=== PATIENT | female | born 1995 | race Caucasian/White ===

== ENCOUNTER → 2023-04-05 | Outpatient (CLI) | payer BC, SELFPAY ==
[2023-04-05 12:06] LABS: Absolute Lymphocyte Count 1.65 X10^3/uL (0.83-4.51); Absolute Neutrophil Count 8.4 X10^3/uL (2.0-7.7); Basophil# 0.09 X10^3/uL; Basophil% 0.8 % (0-1); Eosinophil# 0.22 X10^3/uL; Eosinophils% 1.9 % (0-5); Hematocrit 34.3 % (37-47); Hemoglobin 10.3 g/dL (12.0-15.0); Lymphocyte # 1.65 X10^3/ul (0.83-4.51); Lymphocyte % 14.3 % (19-41); Mean Corpuscular Volume 73.1 fL (81-99); Mean Platelet Vol. 9.3 fl (6.2-12.0); Monocyte# 1.17 X10^3/uL; Monocyte% 10.1 % (0-10); NRBC Flagged by Analyzer 0 % (0-5); Neutrophil # 8.35 X10^3/uL (2.7-7.7); Neutrophil % 72.5 % (47-70); Platelet Count 313 K/mm3 (150-450); RBC Distribution Width CV 16.9 % (11.6-14.6); RBC Distribution Width SD 43.8 fl (35.1-43.9); Red Blood Count 4.69 M/mm3 (4.2-5.4); White Blood Count 11.5 K/mm3 (4.4-11.0)
[2023-04-05 12:55] LABS: NATERA MAILED SPECIMEN
[2023-04-05 13:26] LABS: HIV - WCH Non-Reactive (Nonreactive); Hepatitis B Surface Antigen Non-Reactive (Nonreactive); Hepatitis C Antibody Non-Reactive (Nonreactive); Rubella IgG Reactive (Nonreactive); Syphilis Antibodies Non-reactive
[2023-04-08 20:07] LABS: Chlamydia By Nucleic Acid AMP Negative (Negative); Gonococcus By Nucleic Acid AMP Negative (Negative)
== END | disposition home or self-care (01) ==
PROVIDERS: Referring Provider Registered Nurse; Visit Provider Registered Nurse
DX: O09.91 Supervision of high risk pregnancy, unspecified, first trimester (principal); Z3A.00 Weeks of gestation of pregnancy not specified
CPT/HCPCS: 36415; 85025; 86703; 86762; 86780; 86803; 86850; 86900; 86901; 87086; 87340; 87491; 87591

== ENCOUNTER → 2023-10-02 | Outpatient (CLI) | payer MEDICAID, SELFPAY ==
--- NOTE | 2023-10-02 13:30 | US_ITS ---
STUDY: SECOND AND THIRD TRIMESTER OBSTETRICAL ULTRASOUND REASON FOR EXAM: Female, 28 years old well being LMP: January 21, 2023. TECHNIQUE: Transabdominal. The patient refused the transvaginal examination. TECHNICAL QUALITY: Adequate. PRIOR ULTRASOUND: None. FINDINGS: There is a single intrauterine fetus. The fetus is in a cephalic presentation. There is demonstrated cardiac activity with a heart rate of 177 bpm. There is a normal amniotic fluid volume. The largest amniotic fluid pocket measures 3.2 cm x 2 cm. The amniotic fluid index (BRUCE) is 9.3 cm. The placenta is right lateral in location and is not low lying. There are Grade 2 placental changes. The cervix measures 3.7 cm in length. The adnexal regions are not visualized. BIOMETRY: BPD: 9.05 cm: 36 weeks, 5 days HC: 32.49 cm: 36 weeks, 6 days AC: 33.45 cm: 37 weeks, 2 days FL: 6.5 cm: 33 weeks, 6 days CI: 80% FL/BPD: 73% FL/HC: FL/AC: 20% HC/AC: 0.97 age by current US: 36 weeks, 4 days. MARIBETH by current US: October 26, 2023. Estimated weight: 2947 grams, +/- 442 grams, 57 %. Age by LMP: 36 weeks, 2 days. MARIBETH by LMP: October 28, 2023. ANATOMY: Gender: Indeterminant Cranium: Normal lateral ventricles. Normal choroid plexus. The cerebellum is non-visualized.. The cisterna magna is non-visualized. Normal face, nose and lips. Chest: Normal 4-chamber heart. Abdomen/Pelvis: Normal diaphragm. Normal stomach. Normal abdominal wall. Normal cord insertion. Normal 3 vessel cord. Normal kidneys. Normal bladder. Spine: Normal cervical spine. Normal thoracic spine. Normal lumbar spine. Normal sacrum. Extremities: Normal bilateral upper extremities. Normal bilateral lower extremities. US/OB Anatomy Scan IMPRESSION: Single live uterine gestation with mean gestational age of 36 weeks and 4 days. Electronically Signed: Franklin Fischer MD at 15:13 EST ,
--- OUTSIDE RECORDS SUMMARY | 2023-10-02 13:49 | XMS RPT_ITS | CCD ---
Author Name Unknown Address [address] [place] [address] Organization [facility] Care Team Providers Care Hogshead Liner Name Role Phone PHYSICIAN, NONE Primary Care Physician Unavailab le PHYSICIAN, NONE Primary Care Unavailable LAVON MESSINA, MIRELA Boothe Attending Unavailable JENNIFER CALDERON MD Admitting Unavailable JENNIFER CALDERON MD Attending Unavailable JENNIFER CALDERON MD Primary Care Unavailable JENNIFER CALDERON MD Admitting Unavailable JENNIFER CALDERON MD Attending Unavailable JENNIFER CALDERON MD Primary Care Unavailable Allergies Allergy Classification Reported Allergen(s) Allergy Type Date of Onset Reaction(s) Facility (1 source) Latex Allergy to substance [facility] Results Test Name Value Interpretation Reference Range Facil ity Vital Signs Date Time Vital Sign Value Performing Clinician Faci lity 12-12-2022 17:59-0400 Body temperature 98.42 [degF] MIRELA DOLL MD [facility] 12-12-2022 17:59-0400 Body weight 64.8 kg MIRELA DOLL MD [facility] 12-12-2022 17:59-0400 Diastolic Blood Pressure Non-Invasive 93 1 MIRELA DOLL MD [facility] 12-12-2022 17:59-0400 Heart rate 98 /min MIRELA DOLL MD [facility] 12-12-2022 17:59-0400 Respiratory rate 17 /min MIRELA DOLL MD [facility] 12-12-2022 17:59-0400 Systolic Blood Pressure Non-Invasive 145 1 MIRELA DOLL MD [facility] Encounters Encounter Date Encounter Type Care Provider Facility Start: 02-26-2023 End: 02-26-2023 Emergency department patient visit JENNIFER MESSINA [facility] Start: 01-22-2023 End: 01-22-2023 Emergency department patient visit JENNIFER MESSINA [facility] Start: 12-12-2022 End: 12-12-2022 Emergency department patient visit NONE PHYSICIAN Facility:A Start: 12-12-2022 End: 12-12-2022 Emergency department patient visit MIRELA DOLL MD [facility] Procedures Date Procedure Procedure Detail Performing Clinician Start: 02-26-2023 Urinalysis JENNIFER Frances Payers Date Payer Category Payer Medicaid [id number] 1995 Unknown [id number] 1995 Unknown [id number] 1995 Unknown [id number] Medicaid [id number] Social History Date Type Detail Facility Tobacco smoking status No Smoking Status Entered [facility] Sex Assigned At Female [facility] Evaluation + Plan note Note Date & Type Note Facility Evaluation + Plan note No data available for this section [facility] Hospital Discharge instructions Note Date & Type Note Facility Hospital Discharge instructions No data available for this section [facility] Progress note Note Date & Type Note Facility Progress note No data available for this section [facility] Summary Purpose Family History No Family History Records FoundNo Family History Records FoundNo Family History Records Found Advance Directives No Advanced Directives Records FoundNo Advanced Directives Records FoundNo Advanced Directives Records Found Additional Source Comments INFORMATION SOURCE (unrecogn ized section and content) DATE CREATED AUTHOR AUTHOR'S ORGANIZ ATION 12/31/2022 [facility] ([place]) DATE CREATED AUTHOR AUTHOR'S ORGANIZ ATION 03/03/2023 [facility] Patient Care team informatio n (unrecognized section and content) Care Team Personnel Name: PHYSICIAN, NONE Position: Physician Member Role: Primary Care Physician Care Team Related Persons Name: OSMANY WHEELER FOR RECORDS PERTAINING TO PATIENTS WHO ARE OR HAVE BEEN ENROLLED IN A CHEMICAL DEPENDENCY/SUBSTANCEABUSE PROGRAM, SOME INFORMATION MAY BE OMITTED. This clinical summary was aggregated from multiple sources. Caution should be exercised in using it in the provision of clinical care. This summary normalizes information from multiple sources, and as a consequence, information in this document may materially change the coding, format and clinical context of patient data. In addition, data may be omitted in some cases. CLINICAL DECISIONS SHOULD BE BASED ON THE PRIMARY CLINICAL RECORDS. [employer] provides no warranty or guarantee of the accuracy or completeness of information in this document.
[2023-10-02 15:34] LABS: Absolute Lymphocyte Count 1.86 X10^3/uL (0.83-4.51); Absolute Neutrophil Count 9.1 X10^3/uL (2.0-7.7); Basophil# 0.05 X10^3/uL; Basophil% 0.4 % (0-1); Eosinophil# 0.03 X10^3/uL; Eosinophils% 0.2 % (0-5); Hematocrit 26.7 % (37-47); Hemoglobin 7.7 g/dL (12.0-15.0); Lymphocyte # 1.86 X10^3/ul (0.83-4.51); Lymphocyte % 14.9 % (19-41); Mean Corp Hgb Conc 28.8 g/dL (32-36); Mean Corpuscular Hgb 18.5 pg (27.0-32.0); Mean Corpuscular Volume 64.2 fL (81-99); Mean Platelet Vol. 9.1 fl (6.2-12.0); Monocyte# 1.32 X10^3/uL; Monocyte% 10.6 % (0-10); NRBC Flagged by Analyzer 0.2 % (0-5); Neutrophil # 9.13 X10^3/uL (2.7-7.7); Platelet Count 266 K/mm3 (150-450); RBC Distribution Width CV 18.5 % (11.6-14.6); RBC Distribution Width SD 41.3 fl (35.1-43.9); Red Blood Count 4.16 M/mm3 (4.2-5.4); White Blood Count 12.5 K/mm3 (4.4-11.0)
[2023-10-02 16:38] LABS: Hemoglobin A1c < 3.8 % (3.8-5.6)
== END | disposition home or self-care (01) ==
PROVIDERS: Referring Provider Obstetrics & Gynecology; Visit Provider Obstetrics & Gynecology
DX: Z34.90 Encounter for supervision of normal pregnancy, unspecified, unspecified trimester (principal); D64.9 Anemia, unspecified
CPT/HCPCS: 36415; 76805; 83036; 85025

== ENCOUNTER 2023-10-17 18:25 | Inpatient (IN) | payer MEDICAID, SELFPAY ==
[2023-10-17] VITALS (9 sets, daily range): BP systolic 116–145; BP diastolic 76–97; PULSE 82–98; RESP 16–18; TEMP 36.7; O2SAT 97–100; BMI 27.5
--- OUTSIDE RECORDS SUMMARY | 2023-10-17 18:31 | XMS RPT_ITS | CCD ---
Author Name Unknown Address [address] [place] [address] Organization [facility] Care Team Providers Care Nylon Operator Name Role Phone PHYSICIAN, NONE Primary Care Physician Unavailab le PHYSICIAN, NONE Primary Care Unavailable MIRELA DOLL MD Attending Unavailable JENNIFER CALDERON MD Admitting Unavailable JENNIFER CALDERON MD Attending Unavailable JENNIFER CALDERON MD Primary Care Unavailable JENNIFER CALDERON MD Admitting Unavailable JENNIFER CALDERON MD Attending Unavailable JENNIFER CALDERON MD Primary Care Unavailable LIAM DRISCOLL Primary Care Provider [phone] DO NIMISHA DAVID Emergency Provider [phone] UNKNOWN, PROVIDER Attending Unavailable LILA DRISCOLL Primary Care Unavailable Allergies Allergy Classification Reported Allergen(s) Allergy Type Date of Onset Reaction(s) Facility (1 source) Latex Allergy to substance [facility] Results Test Name Value Interpretation Reference Range Facil ity Vital Signs Date Time Vital Sign Value Performing Clinician Facility 09-26-2023 17:30-0500 Body weight 70.31 kg LIAM DRISCOLL Work Phone: [facility] 12-12-2022 17:59-0400 Body temperature 98.42 [degF] MIRELA DOLL MD [facility] 12-12-2022 17:59-0400 Body weight 64.8 kg MIRELA DOLL MD [facility] 12-12-2022 17:59-0400 Diastolic Blood Pressure Non-Invasive 93 1 MIRELA DOLL MD [facility] 12-12-2022 17:59-0400 Heart rate 98 /min MIRELA DOLL MD [facility] 12-12-2022 17:59-0400 Respiratory rate 17 /min MIRELA DOLL MD [facility] 12-12-2022 17:59-0400 Systolic Blood Pressure Non-Invasive 145 1 MIRELA DOLL MD [facility] Encounters Encounter Date Encounter Type Care Provider Facility Start: 09-26-2023 End: 09-26-2023 Emergency department patient visit PROVIDER UNKNOWN Facility: Start: 09-26-2023 End: 09-26-2023 Emergency department patient visit LIAM DRISCOLL Work Phone: [facility] Start: 02-26-2023 End: 02-26-2023 Emergency department patient visit JENNIFER MESSINA [facility] Start: 01-22-2023 End: 01-22-2023 Emergency department patient visit JENNIFER MESSINA [facility] Start: 12-12-2022 End: 12-12-2022 Emergency department patient visit NONE PHYSICIAN Facility:A Start: 12-12-2022 End: 12-12-2022 Emergency department patient visit MIRELA DOLL MD [facility] Procedures Date Procedure Procedure Detail Performing Clinician Start: 02-26-2023 Urinalysis JENNIFER Frances Plan of Treatment Date Care Activity Detail Author Patient referral [facility] Work Phone: Payers Date Payer Category Payer Medicaid [id number] 1995 Unknown [id number] [id number] 1995 Unknown [id number] [id number] 1995 Unknown [id number] [id number] Medicaid [id number] Unknown [id number] Unknown [id number] Social History Date Type Detail Facility Tobacco smoking status [facility] Start: 1995 Sex Assigned At Female A [facility] Start: 09-26-2023 Tobacco smoking status NHIS Tobacco smoking consumption unknown (finding) [facility] Start: 09-26-2023 Unknown [facility] Start: 09-26-2023 No [facility] Mental Status Date Assessment Result Facility 09-26-2023 Cognitive function Level Of Cons ciousness Awake;Alert;Appropriate;Follow s Commands [facility] Work Phone: Evaluation + Plan note Note Date & Type Note Facility Evaluation + Plan note No data available for this section [facility] Evaluation note Note Date & Type Note Facility Evaluation note No assessment information availa [facility] Work Phone: Hospital Discharge instructions Note Date & Type Note Facility Hospital Discharge instructions No data available for this section [facility] Progress note Note Date & Type Note Facility Progress note No data available for this section [facility] Summary Purpose Family History No Family History Records FoundNo Family History Records FoundNo Family History Records FoundNo Family History Records Found Advance Directives No Advanced Directives Records FoundNo Advanced Directives Records FoundNo Advanced Directives Records FoundNo Advanced Directives Records Found Chief Complaint and Reason for Visit Chief Complaint ABD PAIN LE AKING FLUIDS Additional Source Comments INFORMATION SOURCE (unrecogn ized section and content) DATE CREATED AUTHOR AUTHOR'S ORGANIZ ATION 12/31/2022 [facility] ([place]) DATE CREATED AUTHOR AUTHOR'S ORGANIZ ATION 03/03/2023 [facility] DATE CREATED AUTHOR AUTHOR'S ORGANIZ ATION 09/27/2023 [facility] Patient Care team informatio n (unrecognized section and content) Goals (unrecognized section and content) Goals may be documented in a n alternate section FOR RECORDS PERTAINING TO PATIENTS WHO ARE [...] BE BASED ON THE PRIMARY CLINICAL RECORDS. [facility] provides no warranty or guarantee of the accuracy or completeness of information in this document.
[2023-10-17] MEDS: Lactated Ringers 1,000 ML 999 ML IV (19:05)
[2023-10-17 19:30] LABS: Absolute Lymphocyte Count 2.09 X10^3/uL (0.83-4.51); Absolute Neutrophil Count 9.6 X10^3/uL (2.0-7.7); Basophil# 0.06 X10^3/uL; Basophil% 0.5 % (0-1); Eosinophil# 0.03 X10^3/uL; Eosinophils% 0.2 % (0-5); Hemoglobin 7.6 g/dL (12.0-15.0); Lymphocyte # 2.09 X10^3/ul (0.83-4.51); Lymphocyte % 15.9 % (19-41); Mean Corp Hgb Conc 28.1 g/dL (32-36); Mean Corpuscular Hgb 17.8 pg (27.0-32.0); Mean Corpuscular Volume 63.2 fL (81-99); Mean Platelet Vol. 9.4 fl (6.2-12.0); Monocyte# 1.33 X10^3/uL; Monocyte% 10.1 % (0-10); NRBC Flagged by Analyzer 0 % (0-5); Neutrophil # 9.57 X10^3/uL (2.7-7.7); Neutrophil % 72.7 % (47-70); POSITIVE MORPHOLOGY YES; Platelet Count 259 K/mm3 (150-450); RBC Distribution Width CV 20.3 % (11.6-14.6); RBC Distribution Width SD 44.2 fl (35.1-43.9); Red Blood Count 4.27 M/mm3 (4.2-5.4); White Blood Count 13.2 K/mm3 (4.4-11.0)
[2023-10-17 19:36] LABS: Differential Indicated SCAN CRITERIA MET
[2023-10-17 19:56] LABS: Anisocytosis 3+; Differential Comment SCANNED; Hypochromasia 1+; Microcytosis 3+; Ovalocyte 1+
[2023-10-17] MEDS: Lactated Ringers 1,000 ML 150 ML IV (20:06)
[2023-10-17 20:20] LABS: Syphilis Antibodies Non-reactive
[2023-10-17] MEDS: Sodium Citrate/Citric Acid 30 ML UDC PO (20:36)
[2023-10-17] MEDS: Acetaminophen 500 MG Tablet 1000 MG PO (20:36)
--- NOTE | 2023-10-17 20:45 | HP.PCM.OB_ITS ---
HPI - General General Date of Admission: 10/17/23 HPI Narrative ALLYSON GOODEN, is a 28 F who presents for RLTCS due to oligohydramnios Maternal Data Information MARIBETH Calculator Estimated Delivery Date Method Current WG Current Estimate 10/28/23 LMP (Certain) 38w 3d PFSH PFSH Medical History (Updated 10/17/23 @ 20:[address] Jackie Robert MD) Oligohydramnios hemorrhage Home Medications acetaminophen 325 mg capsule (Tylenol) 325 mg PO ONCE PRN pain 10/02/23 [History Last Taken 10/16/23] Allergy/AdvReac Type Severity Reaction Status Date / Time furosemide [From Lasix] Allergy Mild Hives Verified 10/17/23 19:09 latex Allergy Unknown Hives Verified 10/17/23 19:09 Family History Father Diabetes Surgical History S/P Social History Smoking Status: Never smoker substance use type: does not use caffeine: Yes what type of physical activity do you participate in: none seatbelt use: always do you feel safe at home: Yes additional social history: - Dorcas History 4 Elective abortions Hx Para 1 Spontaneous abortions Hx # Term Pregnancies Ectopic pregnancies Hx # Pregnancies Multiple births # of living children Past Pregnancies Del. Date Name GA/Weeks Outcome Route Bth Weight Infant Gen Labor Lgth Anesthesia Del Locatn Provider FOB 05/09/17 Damián 39 live - full term 7lbs 6oz Male ep idural [place] [employer] 03/23/20 Luis 39 live - full term 8lbs 10oz [place] Hector 11/08/21 Justin 40 live - full term 8lbs 15oz Male spinal [place], [place] Tima Delivery Date: 05/09/17 Last Updated by: Marian Crandall No issues during or delivery Delivery Date: 03/23/20 Last Updated by: Marian Crandall Umbilical cord was delivering first, emergency csection Delivery Date: 11/08/21 Last Updated by: Marian Crandall No issues during or delivery. Visit Details Expected Delivery Route/Plan patient counseled regarding risks/benefits of trial of labor versus repeat . ACOG/uptodate education given to patient. [] % likelihood of success per calculator TOLAC consent form signed: [] Labor Preferences- CB/BF classes: [] labor support person: Dorcas labor intervention preferences: [] pain management options preferred: [] cut cord/dad catch: [] : [] PP control planned: [] discussed possible routes of delivery and associated risks: [] special requests: [] Plans Covid status: [] Flu vaccine: [] Tdap vaccine: [] Rhogam: [] LARC form signed: [] Problem list reviewed and updated with the most current plan of care details and appropriate orders placed. Relevant counseling for the gestational age provided. Continue routine care and follow up unless otherwise noted in visit n otes/problem list details OB Flowsheet Initial Weight: 143 lb Date -?-?-?-?-?-?-?-?-?-?-?-?- EGA Weight BP Urine Prot -?-?-?-?-?-?-?-?-?-?-?-?- Glucose FHR FuHt Pres Dilation -?-?-?-?-?-?-?-?-?-?-?-?- Effaced St Visit Note 04/05/23 -?-?-?-?-?-?-?-?-?-?-?-?- 10w 4d 143 lb 4 oz (+4 oz) 132/82 -?-?-?-?-?-?-?-?-?-?-?-?- 165 -?-?-?-?-?-?-?-?-?-?-?-?- LC- CRL 30mm. c/ w LMP. due date 10/28/2023. desires . need record release for all pregnancies to determine eligibility for . 10/02/23 -?-?-?-?-?-?-?-?-?-?-?-?- 36w 2d 156 lb (+13 lb) 128/78 Negative -?-?-?-?-?-?-?-?-?-?-?-?- Negative 150 36 -?-?-?-?-?-?-?-?-?-?-?-?- SM- limited pren atal care- pateint and state they do not like doctors or hospitals due to bad experiences and have trouble getting ehre due to the distance. they are wanting to deliver her but have concerns about being anytime aroudn delivery. patient has significant fears about beign away from her and her is very protective of her and wants to be present with her throughout her stay. she has been unable to take due to dizziness, denies any vb lof admits good fm no regular ctx. got bloodwork doen today and signficiant anemia. will proceed with RLTCS declines any vagianl exams declines gbs testing, understands this may mean pediatricians will want to observe baby longer. Notes Visit Date: 04/05/23 Last Updated by: Sandra To CNM G1- PPH ? shoulder dystocia. needed blood transfusion. G2- PC/S for cord prolapse G3- repeat c/s NST FHR Rate Baby A Baseline: 160 Variability:: Moderate Accelerations:: 15 x 15 Decelerations:: None NST Reactive:: Yes FHR Category:: Category II Uterine Activity:: irregular ROS Constitutional Constitutional: Reports systems reviewed and no addt'l complaints, except as documented ENT HEENT: Reports systems reviewed and no addt'l complaints, except as documented Cardiovascular Cardiovascular: Reports systems reviewed and no addt'l complaints, except as documented Respiratory/Chest Respiratory/Chest: Reports systems reviewed and no addt'l complaints, except as documented Gastrointestinal Gastrointestinal: Reports systems reviewed and no addt'l complaints, except as documented and nausea; Denies abdominal pain Genitourinary Genitourinary: Reports systems reviewed and no addt'l complaints, except as documented, contractions Details: present and frequency (regular ) and movement Details: present Musculoskeletal Musculoskeletal: Reports systems reviewed and no addt'l complaints, except as documented Integumentary Integumentary: Reports as per HPI Neurologic Neurologic: Reports systems reviewed and no addt'l complaints, except as documented Endocrine Endocrinology: Reports systems reviewed and no addt'l complaints, except as documented Vital Signs Vital Signs Vital Signs: 10/17/23 19:41 Temperature 98.0 F Temperature Source Temporal Pulse Rate 97 Respiratory Rate 16 Blood Pressure 133/84 H Blood Pressure Mean 100 Blood Pressure Source Monitor Blood Pressure Position Semi-Fowlers Blood Pressure Location Right Arm Pulse Ox 100 Oxygen Delivery Method Room Air Weight Weight: 160 lb 3.2 oz Body Mass Index (BMI) 27.5 Physical Exam Const alert, oriented x3 and healthy appearing Constitutional Narrative: uncomfortable with contractions HEENT normocephalic and moist oral mucous membranes Head and Scalp: atraumatic Neck full ROM, no lymphadenopathy, supple and thyroid normal General: trachea midline Thyroid: thyroid normal Lymph Lymphatic: no lymphadenopathy noted Chest inspection of chest normal Resp normal respiratory effort Cardio regular rate GI normal to inspection, nondistended, normoactive bowel sounds, soft to palpation and non-tender Inspection: gravid external exam normal Bimanual Exam - Vag & Uterus: uterus non-tender Manual OB Exam: estimated gestational size appropriate, presentation cephalic, dilated, effaced and station Extremity normal to inspection General Extremity: Negative for edema Skin no rashes or lesions noted Neuro deep tendon reflexes 2+ bilaterally Motor Exam: strength 5/5 throughout and clonus absent Psych mental status grossly normal Labs Labs Labs: Blood Type O POSITIVE Antibody Screen NEGATIVE Hct 27.0 % (37-47) L Hgb 7.6 g/dL (12.0-15.0) L Obstetrics Ultrasound Syphilis Total Ab Non-reactive Rubella IgG Antibody Reactive (Nonreactive) Hep Bs Antigen Non-Reactive (Nonreactive) Hepatitis C Antibody Non-Reactive (Nonreactive) Chlamydia DNA (LYNNE) Negative (Negative) N.gonorrhoeae DNA (LYNNE) Negative (Negative) HIV 1&2 Antibody Non-Reactive (Nonreactive) Assessment & Plan (1) Oligohydramnios in third trimester: COMMENT: proceed with immediate delivery, patient refused to come immediately to labor and delivery, went home first to get personal items and then came to l and d (2) Anemia: COMMENT: iron supplementation. recheck in 4 weeks declined IV iron infusions, understands risks of transfusion at , plan type and cross at potentially (3) History of delivery: COMMENT: plan RLTCS with SM (4) History of hemorrhage: COMMENT: required blood transfusion (5) Supervision of high-risk : COMMENT: PRR . MARIBETH 10/28/2023. girl, only 2 year old lives with her and . :dorcas (6) : QUALIFIERS: Weeks of gestation: 38 weeks Qualified Code(s): Z3A.38 - 38 weeks gestation of COMMENT: low risk NIPT limited care (7) Chronic anemia: COMMENT: transfuse 1 unit now, second on hold. TXA with delivery PLAN: Plan proceed with RLTCS patient and very specific and refusing certain recommendations and interventions due to fear of hospital, doctors, and interventions. Support and education about safety and reasons for interventions provided, proceed with rltcs and spinal anesthesia. transufse one unit now.
[2023-10-17] MEDS: Cefazolin 2 GM in 0.9% Normal Saline (100mL Bag) 100 ML IV (20:56)
[2023-10-17] MEDS: TRANEXAMIC ACID 1,000 MG in 0.9% Normal Saline (100mL Bag) 100 ML 440 MG IV (21:17)
[2023-10-17] MEDS: Methylergonovine 0.2 MG/ML Ampul 0.200000000000000011 MG IM (21:26)
[2023-10-17] MEDS: Carboprost Tromethamine 250 MCG/ML Ampul IM (21:30)
--- NOTE | 2023-10-17 22:12 | OP.PCM_ITS ---
Report of Operation Date of Procedure: 10/17/23
--- NOTE | 2023-10-17 22:12 | PCM.OPRPT ---
Report of Operation Date of Procedure: 10/17/23
[2023-10-17] MEDS: Oxytocin 15 Units/NS 250ml 15 UNITS/250 ML IV.SOLN 83 UNITS IV (22:20)
--- NOTE | 2023-10-17 22:57 | EX.PCM.OBRPT ---
Assessment & Plan (1) SROM (spontaneous rupture of membranes): COMMENT: meconium (2) Chronic anemia: COMMENT: transfuse 1 unit now, second on hold. TXA with delivery (3) Oligohydramnios in third trimester: COMMENT: proceed with immediate delivery, patient refused to come immediately to labor and delivery, went home first to get personal items and then came to l and d (4) Anemia: COMMENT: iron supplementation. recheck in 4 weeks declined IV iron infusions, understands risks of transfusion at , plan type and cross at potentially (5) History of delivery: COMMENT: plan RLTCS with SM (6) History of hemorrhage: COMMENT: required blood transfusion (7) Supervision of high-risk : COMMENT: PRR . MARIBETH 10/28/2023. girl, only 2 year old lives with her and . :dorcas (8) : QUALIFIERS: Weeks of gestation: 38 weeks Qualified Code(s): Z3A.38 - 38 weeks gestation of COMMENT: low risk NIPT limited care (9) hemorrhage: COMMENT: given medications and stabilized, 2 unites transfused due to preexisting chronic anemia, 2 additional units on hold (10) delivery delivered: COMMENT: RLTCS PPH Oligo girl Sammie 38 SROM mec Maternal Data Information MARIBETH Calculator Estimated Delivery Date Method Current WG Current Estimate 10/28/23 LMP (Certain) 38w 3d Details Operative Information Date of Procedure: 10/17/23 Pre-Operative Diagnosis: Previous Post-Operative Diagnosis: same Indications for : Repeat Elective Indications Narrative: Surgeon: Jackie Robert MD Classification: ANJANA Procedure Type: low transverse compressed gases tester #1: Adam Bazzi Type of Anesthesia: Spinal Special Medications: TXA, 2 units PRBCs, methergine, hemabate, pitocin. slade Antibiotic Given: Ancef 2 grams IV x1 Drain: Barroso to straight drain Estimated Blood Loss: 1600 Fluids Replaced: crystalloid Procedure Start Time: 21:17 Procedure Stop Time: 21:56 Findings Description of Procedure: Spinal anesthesia was placed without difficulty. Barroso catheter was placed. The patient was placed in the dorsal supine position with leftward tilt. Patient was prepped and draped in the normal sterile fashion. Pfannenstiel skin incision was made with the scalpel and carried through to the underlying layer of fascia with the scalpel. Fascia was nicked in the midline and the incision extended laterally. The rectus bellies were dissected off superiorly and inferiorly with out complication both sharply and bluntly. The peritoneum was entered digitally. The incision was stretched and a low transverse uterine incision was made with the scalpel. The infant's head was delivered atraumatically followed by the anterior and posterior shoulders without complication the rest of the delivered. The cord was clamped and cut and the was handed off to awaiting nurse. The placenta was delivered spontaneously immediately following and was noted to be intact and have a three-vessel cord. The uterus was exteriorized cleared of all clots and debris, and the lining of the uterus showed bleeding especially in the LORI, no retained products seen but just larger blood vessels that led to increased PPH. the incision was closed in a single layer closure using #1 Monocryl. The ovaries and fallopian tubes were noted to be within normal limits. The uterus was returned to the maternal abdomen and gutters were cleared of all clots and debris. slade placed over incision for good hemostasis. The peritoneum was closed with 3-0 Monocryl in a running fashion. Fascia was closed with 0 PDS in a running fashion. Subcutaneous tissue was copiously irrigated and the skin was closed with 3-0 Monocryl in a subcuticular fashion. Mepilex dressing was applied without complication. Patient was taken to recovery in stable condition. Amniotic Membrane Rupture Type: Spontaneous (mec) Amniotic Fluid Description: Thick meconium Placenta Disposition: [facility] Cord Vessel Description: 3 Vessels Delayed Cord Clamping: No Complications Risks of Surgery Discussed w/Patient: Bleeding, Infection, Need for Future C-Sections and Injury to surrounding structure(s) including bowel and bladder Vaginal Delivery Complication Complications: None Admit VTE Documentation VTE Present on Admission: No VTE Mechan Device Prophylaxis: SCD's Procedures Urinary/Genital [id number]: [id number] delivery+PP Care([facility])
--- NOTE | 2023-10-17 23:03 | DCINST_ITS ---
Discharge Instructions Diet Discharge Diet: No restrictions Activity Discharge Activity: May Not Drive (for 2 weeks or while taking narcotic pain medications.), May Shower and May Take a Tub Bath (in 7 days) May shower in (days): 0 May resume sexual activity in: 4-6 weeks Weight Bearing Status: Full weight bearing Lifting Restrictions: 20 pounds Dressing / Incision Call your doctor if your incision/area has: Continuous Slow Oozing, Sudden Increased Bleeding, Increased Pain/ Swelling, Increased Redness and Foul Smelling Discharge Call your doctor if you observe: Fever of 101 or Higher and Using more than 1 pad per hour (for 2 hours) Suture Line Care: Avoid Pulling/Pushing and Avoid Pinching/Bending Cleanse incision/area with: Soap & Water and Keep Dressing Clean & Dry Follow Up Care Please Follow Up With: Jackie Robert MD When: Call [phone] to make an appointment for an incision check in 1-2 weeks. Test Results: Test results from this visit will be discussed in further detail at your follow- up appointment, if applicable. Discharge Plan Admission Admit Date/Time: 10/17/23 18:25 Attending Provider: Jackie Robert Primary Care Provider: Care PhysicianAdina Primary Discharge Orders/Prescriptions Prescriptions: New oxycodone-acetaminophen [Percocet] 5-325 mg tablet 1 tab PO Q6H PRN (Reason: pain) 7 Days Qty: 10 0RF naproxen [naproxen] 500 mg tablet 500 mg PO BID PRN PRN (Reason: Pain) Qty: 30 1RF No Action acetaminophen [Tylenol] 325 mg capsule 325 mg PO ONCE PRN (Reason: pain) Referrals / Follow Up: Care PhysicianAdina Primary [Primary Care Provider] -
[2023-10-17] MEDS: Ketorolac 30 MG/ML Syringe IV (23:40)
[2023-10-17 23:58] LABS: Absolute Lymphocyte Count 1.32 X10^3/uL (0.83-4.51); Absolute Neutrophil Count 17.3 X10^3/uL (2.0-7.7); Basophil# 0.08 X10^3/uL; Basophil% 0.4 % (0-1); Eosinophil# 0.01 X10^3/uL; Hematocrit 31.5 % (37-47); Hemoglobin 9.3 g/dL (12.0-15.0); Lymphocyte # 1.32 X10^3/ul (0.83-4.51); Lymphocyte % 6.6 % (19-41); Mean Corp Hgb Conc 29.5 g/dL (32-36); Mean Corpuscular Hgb 20.3 pg (27.0-32.0); Mean Corpuscular Volume 68.6 fL (81-99); Mean Platelet Vol. 9.6 fl (6.2-12.0); Monocyte# 1.24 X10^3/uL; Monocyte% 6.2 % (0-10); NRBC Flagged by Analyzer 0 % (0-5); Neutrophil # 17.34 X10^3/uL (2.7-7.7); POSITIVE MORPHOLOGY YES; Platelet Count 233 K/mm3 (150-450); RBC Distribution Width CV 23.9 % (11.6-14.6); RBC Distribution Width SD 55.9 fl (35.1-43.9); Red Blood Count 4.59 M/mm3 (4.2-5.4); White Blood Count 20.2 K/mm3 (4.4-11.0)
[2023-10-18] VITALS (10 sets, daily range): BP systolic 115–138; BP diastolic 64–88; PULSE 84–103; RESP 16–18; TEMP 36.7–37.1; O2SAT 96–99
[2023-10-18 00:06] LABS: Differential Indicated SCAN CRITERIA MET
[2023-10-18 01:01] LABS: Differential Comment SCANNED
[2023-10-18 01:04] LABS: Anisocytosis 2+; Hypochromasia 1+; Microcytosis 2+; Polychromasia 1+
[2023-10-18] MEDS: Lactated Ringers 1,000 ML 100 ML IV (01:40)
[2023-10-18] MEDS: Acetaminophen 500 MG Tablet 1000 MG PO ×4 (02:47→23:12)
--- NOTE | 2023-10-18 05:43 | NURSING ---
Addendum entered by Alma Rodriguez 10/18/23 08:15: Pt refused to remove tshirt and bra before c/s but did agree to wear gown over them. was upset in OR that anesthesia and respiratory were male. blinds were closed to accommodate and pt and were reassured that ALUMNI COORDINATOR was focused on keeping her comfortable and we would keep her covered as best as we could. Father of baby has become very harsh with this RN coming into room to doing belly and vital checks and states we would not allow them to sleep. Pt and not happy with length of hospital stay. Pt very unhappy with Catheter. Pt wanted it removed during recovery, this RN explained the many reasons it would be beneficial and safer for her to keep it in longer, pt agree but then demanded it out 2 hours later. Encourage pt and to feed baby every 2-3 hours even if the baby doesn't wake for a feed the should wake her, fob stated that the doesn't have to eat if shes not hungry and she'll wake up if she's hungry. Pt is very forgetful, this RN would remind her of things and results many times and she would continue to ask the same questions. Original Note: Pt is a , pt only acknowledges her 2 year old son at home and this baby. Pt has 2 other children but does not have custody of them. When asked pt states she only has 2 kids. Pt and both state they do not trust hospitals or healthcare workers. They state they have had bad experiences every time and have wanted to lisseth different people because doctors and people like them just want money. Pt does not make many decisions for herself and always looks to for decision. Both pt and have negative/confrontational responses the majority of the time. Pt does not like nurses performing tasks and asks for to be able to do it, such as shaving her before c/s and change pad. Pt denies any hx of physical, sexual or mental abuse but reacts like she may have some past hx. Pt does not like to be exposed or uncovered and does not want many people in room. states he is very untrusting of people in the healthcare field . is very defensive and can come across argumentative. has to be with pt at all times.
[2023-10-18] MEDS: Ketorolac 30 MG/ML Syringe IV ×3 (06:11→18:36)
[2023-10-18 06:40] LABS: Hematocrit 26.3 % (37-47); Hemoglobin 7.9 g/dL (12.0-15.0); Mean Corpuscular Hgb 20.3 pg (27.0-32.0); Mean Corpuscular Volume 67.4 fL (81-99); Mean Platelet Vol. 9.5 fl (6.2-12.0); POSITIVE MORPHOLOGY YES; Platelet Count 193 K/mm3 (150-450); RBC Distribution Width CV 22.6 % (11.6-14.6); RBC Distribution Width SD 53.8 fl (35.1-43.9); White Blood Count 14.6 K/mm3 (4.4-11.0)
[2023-10-18 06:43] LABS: Scan Indicated on CBC? Y/N YES- FLAGS NOTED
[2023-10-18] MEDS: Senna/Docusate Sodium 1 Tablet PO (09:01)
[2023-10-18 10:16] LABS: Absolute Lymphocyte Count 1.27 X10^3/uL (0.83-4.51); Absolute Neutrophil Count 12.6 X10^3/uL (2.0-7.7); Basophil# 0.06 X10^3/uL; Basophil% 0.4 % (0-1); Eosinophil# 0.07 X10^3/uL; Eosinophils% 0.4 % (0-5); Hematocrit 26.4 % (37-47); Lymphocyte # 1.27 X10^3/ul (0.83-4.51); Mean Corp Hgb Conc 30.3 g/dL (32-36); Mean Corpuscular Hgb 20.5 pg (27.0-32.0); Mean Corpuscular Volume 67.7 fL (81-99); Monocyte# 1.84 X10^3/uL; Monocyte% 11.5 % (0-10); NRBC Flagged by Analyzer 0 % (0-5); Neutrophil # 12.62 X10^3/uL (2.7-7.7); POSITIVE DIFFERENTIAL YES; POSITIVE MORPHOLOGY YES; Platelet Count 187 K/mm3 (150-450); RBC Distribution Width CV 22.6 % (11.6-14.6); RBC Distribution Width SD 53.8 fl (35.1-43.9)
[2023-10-18 10:25] LABS: Differential Indicated SCAN CRITERIA MET
[2023-10-18 10:45] LABS: Anisocytosis 1+; Hypochromasia 1+
[2023-10-18] MEDS: 0.9% Saline Lock 10 ML Syringe IV ×2 (12:39→18:36)
--- NOTE | 2023-10-18 15:53 | CASEMGMT ---
Social Work Assessment Labor and Delivery Unit Patient Address:[address] [place] [id number] Phone number: [phone] Date of Referral: 10/18/23 Time of Referral:? 541 Referred By: Jackie Robert Date of Intervention: 10/18/23?? Time of Intervention:? 0, ongoing Reason for Referral:? limited care, resources Sw completed chart review and acknowledges social work consult entered due to limited care and family potentially in need of resources. Sw presented to bedside and introduced self to mother of baby (MOB- Pamela) and father of baby (FOB- Yahir). Sw explained sw role and completed psychosocial assessment. Sw assessed for any needs or concerns and provided parents with list of resources they may benefit from at this time. - Sw also informed from nursing staff concerns that FOB may be controlling, FOB not leaving MOB- requesting to be present for all interventions, MOB refusing checks, etc. History obtained from: medical records, MOB and FOB Household composition: Currently residing in the family home is MOB, DONYA, their 2 year old son Justin (11/08/21) and now baby. Parents deny any concerns with their housing, reporting that it is safe and secure. Patient's parent/guardian status:? ?MOB and FOB state that they have been together for 2 years. FOB states that MOB was talking to his friend online, and when they were supposed to meet each other, FOB showed up in his place stating that he wasn't treating her right . - Sw asked MOB to complete SDOH screening, as well as Kila Depression Scale. Sw asked if FOB would step out of the room, and he looked at MOB and said he would step out if she was ok with it. FOB stated I know you don't like that kind of stuff . MOB looked at FOB and said she did not want him to leave. - Sw offered to read the questions for MOB, but MOB state that she did not want sw to read the questions, she was not comfortable with FOB leaving the room. - Jesus Alberto wrote on SDOH screen Are you safe at home and MOB replied, yes . - Although there are concerns with staff that FOB is controlling, MOB appears comfortable in his presence and denies feeling unsafe. Medical History: ?MOB is 27 year old female who is 4, para 3- now 4 following labor and delivery of . MOB and FOB were telling staff that this was only their second baby. Jesus Alberto addressed this with parents, stating that baby is in fact her fourth baby. MOB stated that yes, baby is technically her 4th, but she does not have custody of her older two children, so they only indicate that this is her second. MOB received limited care, only attending two appointments (March 2023, and October 16). Sw discussed this concern with parents and they report that they were working on getting MOB added to insurance, and that is why they missed appointments. Sw expressed the importance of routine appointments if they were to have another baby. Sw also emphasized the importance of baby going to the scheduled grain loader appointments as often as necessary. Parents acknowledged this information. Baby was born via repeat at 38 weeks gestation. Baby girl, named Xavi, was born weighing 6lb 5oz and her apgars were 9 and 9 at one and five minutes of life respectfully. - Parents state that they have chosen Dr. Head for pediatrics. - MOB is bottle feeding baby. Educational Status:? Both parents graduated from high school. FOB states that he did require an IEP when he was younger. MOB stated that she is not sure what an IEP is. Sw educated MOB on what an IEP is and MOB stated that she did have one when she was in elementary school, but she did not need it later on. 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 MOB is a stay at home mom. Infant Supplies:?? Parents state that they have obtained all necessary baby supplies, including: car seat, safe sleep space, clothes, diapers, and wipes. Childcare/Caregiver(s):? MOB and FOB will be the primary caregivers to baby. Parents state if they need help with childcare FOB's family will be able to help. While parents are at the hospital paternal grandparents are watching their two year old. Transportation:?? DONYA drives and has reliable transportation. FOB denies any barriers to transportation at this time. Programs/Agencies Involved: ???FOIndy states that they have a phone consultation with [employer] on Saturday to apply for food stamps. Parents are not connected to any mental health services or supports. FOB states that they have a brochure for [facility]. Children Services/Legal Issues:??FARRAH has two older children who were born in [place] where she previously resided. FARRAH reports that her two older children were removed from her custody when their two fathers went to court and had them removed from her care. MOB states that at that time Children Services were not involved. - Sw made referral on this date due to concerns of dependency. Sw spoke to Children Services hotline screener[facility]erie [facility]al [facility] Issues: ??Mental Health History:??Parents deny mental health diagnoses. ? Substance Use History: No substance use history prior to or during . FOB denies substance use. ? Family History:??Parents deny family history of family addiction or significant mental health diagnoses. ??? Drug Screens: ?NO urine screens during .? Family/Social Stressors:? Parents deny stressors at this time. Support Systems: Parents report that paternal grandparents are supportive. Depression/Shaken Baby/Safe Sleeping:? Sw educated parents on signs and symptoms of baby blues and depression and anxiety. Parents express understanding. Sw educated parents on shaken baby prevention and ACBs of safe sleep. Parents expressed understanding. ASSESSMENT:? MOB and baby admitted following labor and delivery. MOB and FOB both appear to have cognitive delay, potential learning disability. FOB not understanding difference between [facility] and a grain loader. Sw attempted to meet with MOB privately, which MOB declined, and stated that she wanted him to be present. MOB denies being fearful to go home at this time, indicating that she is safe. While meeting with parents, baby in crib. Baby spit up at one point and MOB reacted to help. FOB picked baby up from crib and gave her to mom. MOB held baby and attempted to calm her down following spit. Baby did not cry, but looked like she was grasping for air. Sw provided support and encouraged parents to call nursing staff if baby does that again. Sw showed parents how to swaddle baby, and encouraged MOB to hold baby. MOB states that she feels a connection with baby, however interactions and mannerisms do not appear to be so. - Parents informed of importance to follow up with grain loader regularly. PLAN:? Referral made to Children Services. Mom and baby to be discharged when medically ready. ?No other services requested or indicated. [employer] Lawrence, EDUCATION PROGRAM COORDINATOR, BLADE OPERATOR
--- NOTE | 2023-10-18 16:01 | PCM.PN.OB ---
Subjective Subjective Patient doing well without complaints. Tolerating PO. Ambulating and voiding without difficulty. feeding well. Denies chest pain, shortness of breath, calf pain/swelling, fevers, chills, lightheadedness. Objective Data Objective Data Vital Signs: Vital Signs Temp Pulse Resp BP Pulse Ox O2 Del Method 98.0 F 96 18 123/78 H 96 Room Air 10/18/23 08:28 10/18/23 08:28 10/18/23 08:28 10/18/23 08:28 10/18/23 08:28 10/18/23 08:28 Oxygen Delivery Method Room Air Weight: 160 lb 3.2 oz Body Mass Index (BMI) 27.5 Intake & Output: Intake and Output for Last 24 Hours 10/16/23 10/17/23 10/18/23 23:59 23:59 23:59 Intake Total 1555 / 1555 848.33 / 848.33 Output Total 2600 / 2600 Balance 1555 / 1555 -1751.67 / -1751.67 Lab / Micro Data 10/18/23 10:02 Labs: Laboratory Results - last 24 hr 10/17/23 19:05: WBC 13.2 H, RBC 4.27, Hgb 7.6 L, Hct 27.0 L, MCV 63.2 L, MCH 17.8 L, MCHC 28.1 L, RDW Std Deviation 44.2 H, RDW Coeff of Chela 20.3 H, Plt Count 259, MPV 9.4, Immature Gran % (Auto) 0.600, Neut % (Auto) 72.7 H, Lymph % (Auto) 15.9 L, [place] % (Auto) 10.1 H, Eos % (Auto) 0.2, Baso % (Auto) 0.5, Absolute Neuts (auto) 9.6 H, Absolute Lymphs (auto) 2.09, Nucleated RBC % 0, Differential Comment SCANNED, Hypochromasia 1+, Anisocytosis 3+, Microcytosis 3+, Ovalocytes 1+, Syphilis Total Ab Non-reactive, Blood Type O POSITIVE, Antibody Screen NEGATIVE, Crossmatch See Detail 10/17/23 19:05: Crossmatch See Detail 10/17/23 23:34: WBC 20.2 H, RBC 4.59, Hgb 9.3 L, Hct 31.5 L, MCV 68.6 L D, MCH 20.3 L, MCHC 29.5 L, RDW Std Deviation 55.9 H, RDW Coeff of Chela 23.9 H, Plt Count 233, MPV 9.6, Immature Gran % (Auto) 0.800, Neut % (Auto) 86.0 H, Lymph % (Auto) 6.6 L, [place] % (Auto) 6.2, Eos % (Auto) 0.0, Baso % (Auto) 0.4, Absolute Neuts (auto) 17.3 H, Absolute Lymphs (auto) 1.32, Nucleated RBC % 0, Differential Comment SCANNED, Polychromasia 1+, Hypochromasia 1+, Anisocytosis 2+, Microcytosis 2+ 10/18/23 06:15: WBC 14.6 H, RBC 3.90 L, Hgb 7.9 L, Hct 26.3 L, MCV 67.4 L, MCH 20.3 L, MCHC 30.0 L, RDW Std Deviation 53.8 H, RDW Coeff of Chela 22.6 H, Plt Count 193, MPV 9.5, Differential Comment 10/18/23 10:02: WBC 16.0 H, RBC 3.90 L, Hgb 8.0 L, Hct 26.4 L, MCV 67.7 L, MCH 20.5 L, MCHC 30.3 L, RDW Std Deviation 53.8 H, RDW Coeff of Chela 22.6 H, Plt Count 187, MPV 9.0, Immature Gran % (Auto) 0.700, Neut % (Auto) 79.0 H, Lymph % (Auto) 8.0 L, [place] % (Auto) 11.5 H, Eos % (Auto) 0.4, Baso % (Auto) 0.4, Absolute Neuts (auto) 12.6 H, Absolute Lymphs (auto) 1.27, Nucleated RBC % 0, Hypochromasia 1+, Anisocytosis 1+ ROS Constitutional Constitutional: Reports systems reviewed and no addt'l complaints, except as documented Cardiovascular Cardiovascular: Reports systems reviewed and no addt'l complaints, except as documented Respiratory/Chest Respiratory/Chest: Reports systems reviewed and no addt'l complaints, except as documented Gastrointestinal Gastrointestinal: Reports systems reviewed and no addt'l complaints, except as documented Physical Exam Const alert, oriented x3 and no apparent distress HEENT Head and Scalp: atraumatic Resp normal respiratory effort GI soft to palpation and non-tender Inspection: incision intact, healing well and drainage (none) Bimanual Exam - Vag & Uterus: uterus non-tender Uterus Palpation: uterus fundus firm (below Umbilicus) Assessment & Plan (1) delivery delivered: COMMENT: SM RLTCS PPH Oligo girl Sammie 38 SROM mec (2) hemorrhage: COMMENT: given medications and stabilized, 2 unites transfused due to preexisting chronic anemia, 2 additional units on hold (3) Chronic anemia: COMMENT: transfuse 2 units now. TXA with delivery. (4) Anemia: COMMENT: iron supplementation. recheck in 4 weeks declined IV iron infusions, understands risks of transfusion at , plan type and cross at potentially PLAN: Plan s/p LTCS PPD # 1 1. routine post care 2. anemia- repeat cbc this am s/p 2 units
[2023-10-19] MEDS: Naproxen 500 MG Tablet PO ×2 (00:28→08:27)
[2023-10-19 01:25] VITALS: BP 126/82; PULSE 96; RESP 16; TEMP 36.6; O2SAT 96
[2023-10-19] MEDS: Acetaminophen 500 MG Tablet 1000 MG PO ×2 (05:07→11:01)
[2023-10-19 08:38] VITALS: BP 131/81; PULSE 87; RESP 16; TEMP 36.6; O2SAT 97
--- NOTE | 2023-10-19 08:50 | DS.PCM_ITS ---
Providers Date of Admission: 10/17/23 Primary Care Physician: No Primary Care Phys Reason For Visit: REPEAT Diagnosis Discharge Diagnosis (1) delivery delivered: Status: Acute Code(s): O82 - Encounter for delivery without indication (2) hemorrhage: Status: Acute Code(s): O72.1 - Other immediate hemorrhage (3) Chronic anemia: Status: Chronic Code(s): D64.9 - Anemia, unspecified (4) Anemia: Status: Acute Code(s): D64.9 - Anemia, unspecified Medications at Discharge Home Medications acetaminophen 325 mg capsule (Tylenol) 325 mg PO ONCE PRN pain 10/02/23 naproxen 500 mg tablet 500 mg PO BID PRN PRN Pain #30 tabs 10/17/23 oxycodone-acetaminophen 5 mg-325 mg tablet (Percocet) 1 tab PO Q6H PRN pain 7 days #10 tabs 10/17/23 Hospital Course Operations None and section Summary of Care Provided Minutes Spent on Discharge: 30 Hospital Course: The patient was admitted for a repeat section on 10/17/2023 There was a post hemorrhage and she was transfused 2 units of blood On day #1 she was tolerating pain well and ambulating. her hg increased back to her baseline of 7.9, on day #2 she was ready for discharge and asking to go home. Her hg was stable at 8.0 Physical Exam HEENT normocephalic Resp normal respiratory effort and normal air movement GI soft to palpation, non-tender and non-distended Rectal Exam: other Other Details: Incision is clean, dry, and intact no CVA tenderness Extremity normal to inspection General Extremity: edema bilateral (trace ) Weight / BMI Weight Weight: 160 lb 3.2 oz Body Mass Index (BMI) 27.5 ABG / Lab / Microbiology Data 10/18/23 10:02 Laboratory: Laboratory Results - last 24 hr 10/18/23 10:02: WBC 16.0 H, RBC 3.90 L, Hgb 8.0 L, Hct 26.4 L, MCV 67.7 L, MCH 20.5 L, MCHC 30.3 L, RDW Std Deviation 53.8 H, RDW Coeff of Chela 22.6 H, Plt Count 187, MPV 9.0, Immature Gran % (Auto) 0.700, Neut % (Auto) 79.0 H, Lymph % (Auto) 8.0 L, [place] % (Auto) 11.5 H, Eos % (Auto) 0.4, Baso % (Auto) 0.4, Absolute Neuts (auto) 12.6 H, Absolute Lymphs (auto) 1.27, Nucleated RBC % 0, Diff Path Review May foll, Hypochromasia 1+, Anisocytosis 1+ D/C Instructions Discharge Diet: No restrictions May shower in (days): 0 May resume sexual activity in: 4-6 weeks Weight Bearing Status: Full weight bearing Call your doctor if your incision/area has: Continuous Slow Oozing, Sudden Increased Bleeding, Increased Pain/ Swelling, Increased Redness and Foul Smelling Discharge Call your doctor if you observe: Fever of 101 or Higher and Using more than 1 pad per hour (for 2 hours) Suture Line Care: Avoid Pulling/Pushing and Avoid Pinching/Bending Cleanse incision/area with: Soap & Water and Keep Dressing Clean & Dry Please Follow Up With: Jackie Robert MD When: Call [phone] to make an appointment for an incision check in 1-2 weeks. Meaningful Use Info Meaningful Use Diagnoses (Choose all that apply): None applicable Discharge Plan Admission Admit Date/Time: 10/17/23 18:25 Attending Provider: Jackie Robert Primary Care Provider: Adina Olivia Primary Discharge Orders/Prescriptions Prescriptions: New oxycodone-acetaminophen [Percocet] 5-325 mg tablet 1 tab PO Q6H PRN (Reason: pain) 7 Days Qty: 10 0RF naproxen [naproxen] 500 mg tablet 500 mg PO BID PRN PRN (Reason: Pain) Qty: 30 1RF No Action acetaminophen [Tylenol] 325 mg capsule 325 mg PO ONCE PRN (Reason: pain) Referrals / Follow Up: Adina Olivia Primary [Primary Care Provider] -
[2023-10-19] MEDS: Senna/Docusate Sodium 1 Tablet PO (11:01)
[2023-10-19 11:14] VITALS: BP 139/93; PULSE 115; RESP 16; O2SAT 95
[2023-10-19 11:25] VITALS: BP 135/81; PULSE 108
[2023-10-21 12:52] LABS: Pathologist Review Reviewed
== END 2023-10-19 13:45 | disposition home or self-care (01) | DRG 540 ==
PROVIDERS: Admitting Provider Obstetrics & Gynecology; Referring Provider Obstetrics & Gynecology; Visit Provider Obstetrics & Gynecology
DX: O41.03X0 Oligohydramnios, third trimester, not applicable or unspecified (principal); O72.1 Other immediate postpartum hemorrhage; O34.211 Maternal care for low transverse scar from previous cesarean delivery; O99.02 Anemia complicating childbirth; O42.02 Full-term premature rupture of membranes, onset of labor within 24 hours of rupture; O77.0 Labor and delivery complicated by meconium in amniotic fluid; Z37.0 Single live birth; Z3A.38 38 weeks gestation of pregnancy; Z59.7 Insufficient social insurance and welfare support; Z60.8 Other problems related to social environment; Z55.8 Other problems related to education and literacy; Z65.3 Problems related to other legal circumstances; Z87.59 Personal history of other complications of pregnancy, childbirth and the puerperium
CPT/HCPCS: 59025; 59050; 85025; 85027; 86780; 86850; 86900; 86901; 86920; 86922; 99221; J7120; P9016; A4216; G0378; J2405